=== PATIENT | female | born 1980 ===

== ENCOUNTER 2018-01-25 11:50 | Emergency (ER) | payer OTHER ==
[2018-01-25 11:55] VITALS: BMI 25.4
[2018-01-25 11:56] VITALS: BP 118/68; PULSE 74; RESP 16; TEMP 98.8; O2SAT 100
--- NOTE | 2018-01-25 13:20 | ED PDOC ---
HPI: Headache Time Seen by Provider: 01/25/18 12:10 Chief Complaint (Nursing): Dizziness/Lightheaded Chief Complaint (Provider): Dizziness History Per: Patient, Cabin Crew History/Exam Limitations: no limitations Current Symptoms Are (Timing): Still Present Additional Complaint(s): Pt reports frontal MENDOZA and dizziness X 1 week, worse in past 3 days. Vertigo worse with head movement. Had similar sxs years ago when dx with anemia, no transfusion. Has not taken medication. Denies visual changes, paresthesias, weakness, incontinence. Past Medical History Reviewed: Nursing Documentation, Vital Signs Vital Signs: Last Vital Signs Temp 98.8 F 01/25/18 11:54 Pulse 74 01/25/18 11:54 Resp 16 01/25/18 11:54 BP 118/68 01/25/18 11:54 Pulse Ox 100 01/25/18 11:54 - Medical History PMH: Anemia Other PMH: Thyroid cyst - Family History Family History: States: Unknown Family Hx - Living Arrangements Living Arrangements: With Family - Social History Current smoker - smoking cessation education provided: No Alcohol: None - Immunization History Hx Tetanus Toxoid Vaccination: No Hx Influenza Vaccination: No Hx Pneumococcal Vaccination: No - Home Medications Home Medications: Ambulatory Orders Medication Instructions Recorded Ferrous Sulfate [Feosol] 325 mg PO TID #30 tab 01/25/18 Meclizine [Meclizine*] 25 mg PO Q6 PRN #20 tab 01/25/18 - Allergies Allergies/Adverse Reactions: Allergies Allergy/AdvReac Type Severity Reaction Status Date / Time No Known Allergies Allergy Verified 01/25/18 12:53 Review of Systems Constitutional: Negative for: Fever, Chills, Weakness Eyes: Negative for: Vision Change ENT: Negative for: Ear Pain Cardiovascular: Negative for: Chest Pain Respiratory: Negative for: Cough, Shortness of Breath Gastrointestinal: Negative for: Nausea, Vomiting, Abdominal Pain, Diarrhea Genitourinary Female: Negative for: Vaginal Bleeding Musculoskeletal: Negative for: Neck Pain Skin: Negative for: Rash, Lesions Neurological: Positive for: Headache, Dizziness. Negative for: Weakness, Numbness, Incoordination, Change in Speech, Confusion, Seizures, Altered Mental Status Physical Exam - Reviewed Nursing Documentation Reviewed: Yes Vital Signs Reviewed: Yes - Physical Exam Appears: Positive for: Well, No Acute Distress Head Exam: Positive for: ATRAUMATIC, NORMAL INSPECTION Skin: Positive for: Normal Color, Warm, Dry Eye Exam: Positive for: Normal appearance, EOMI, PERRL, Nystagmus (Horizontal) Neck: Positive for: Normal, Painless ROM, Supple Cardiovascular/Chest: Positive for: Regular Rate, Rhythm Respiratory: Positive for: Normal Breath Sounds Back: Positive for: Normal Inspection Extremity: Positive for: Normal ROM Neurologic/Psych: Positive for: Alert, construction millwright II-XII, Oriented, Cerebellar Tests ( WNL). Negative for: Motor/Sensory Deficits, Aphasia, Facial Droop - Laboratory Results Result Diagrams: 01/25/18 13:35 01/25/18 13:35 - ECG O2 Sat by Pulse Oximetry: 100 Medical Decision Making Medical Decision Makin yo female with MENDOZA and vertigo. - [facility] : [id number] Patient Name / ID : INNA EPPS / [id number] Exam Date : 01/25/2018 13:45:06 ( Approved ) Study Comment : Sex / Age : F / [id number] Creator : Ahsan Meneses MD Dictator : hAsan Meneses MD Pick Out Hand : Inspector [employer] : Ahsan Meneses MD Approver2 : Report Date : 01/25/2018 14:37:43 My Comment : PROCEDURE: CT HEAD WITHOUT CONTRAST. HISTORY: Vertigo COMPARISON: None available. TECHNIQUE: Axial computed tomography images were obtained through the head/brain without intravenous contrast. Radiation dose: Total exam DLP = 936.96 mGy-cm. This CT exam was performed using one or more of the following dose reduction techniques: Automated exposure control, adjustment of the mA and/or kV according to patient size, and/or use of iterative reconstruction technique. FINDINGS: HEMORRHAGE: No intracranial hemorrhage. BRAIN: Normal hsu-white matter differentiation and density are appreciated throughout the cerebrum and cerebellum with the brainstem appearing unremarkable as well. There is no mass effect. There is no suspicious extra-axial fluid collection and the midline brain anatomy appears diffusely unremarkable. VENTRICLES: Unremarkable. No hydrocephalus. CALVARIUM: Unremarkable. PARANASAL SINUSES: Unremarkable as visualized. No significant inflammatory changes. MASTOID AIR CELLS: Unremarkable as visualized. No inflammatory changes. OTHER FINDINGS: None. IMPRESSION: Unremarkable unenhanced CT of the brain. Follow-up CT or MRI are available if clinically warranted. Disposition - Clinical Impression Clinical Impression: Vertigo, Anemia - Patient ED Disposition Is Patient to be Admitted: No - Disposition Referrals: [facility] [Outside] [facility] [Outside] Disposition: Routine/Home Disposition Time: 15:41 Condition: STABLE Prescriptions: Ferrous Sulfate [Feosol] 325 mg PO TID #30 tab Meclizine [Meclizine*] 25 mg PO Q6 PRN #20 tab PRN Reason: Dizziness Instructions: Vertigo (a Type of Dizziness), Anemia Caused by Low Iron Forms: [employer] (Malian) Print Language: NORWEGIAN
[2018-01-25 13:52] LABS: ALB/GLOB RATIO 1.1 (1.0-2.1); ALBUMIN 4.2 g/dL (3.5-5.0); ALT/SGPT 30 U/L (9-52); AST/SGOT 19 U/L (14-36); BLOOD UREA NITROGEN 10 mg/dl (7-17); CALCIUM 9.3 mg/dL (8.4-10.2); GFR AFRICAN-AMERICAN > 60; GFR NON-AFRICAN AMERICAN > 60
[2018-01-25 13:54] LABS: BASO # 0.1 K/uL (0.0-0.2); BASO % 0.8 % (0.0-2.0); EOS # 0.5 K/uL (0.0-0.7); EOS % 6.2 % (0.0-4.0); HEMOGLOBIN 8.1 g/dL (12.0-16.0); LYMPH # 2.3 K/uL (1.0-4.3); LYMPH % 31.4 % (20.0-40.0); MEAN CELL VOLUME 66.5 fl (81.0-99.0); MEAN CORPUSCULAR HGB CONC 30.1 g/dL (33.0-37.0); MEAN PLATELET VOLUME 7.4 fl (7.2-11.7); MONO # 0.4 K/uL (0.0-0.8); MONO % 5.3 % (0.0-10.0); NEUT # 4.1 K/uL (1.8-7.0); NEUT % 56.3 % (50.0-75.0); NRBC % 0.2 % (0.0-0.0); RBC 4.03 Mil/uL (3.80-5.20); RED CELL DISTRIBUTION WIDTH 21.3 % (11.5-14.5); WHITE BLOOD COUNT 7.3 K/uL (4.8-10.8)
--- NOTE | 2018-01-25 14:39 | CT ---
PROCEDURE: CT HEAD WITHOUT CONTRAST. HISTORY: Vertigo COMPARISON: None available. TECHNIQUE: Axial computed tomography images were obtained through the head/brain without intravenous contrast. Radiation dose: Total exam DLP = 936.96 mGy-cm. This CT exam was performed using one or more of the following dose reduction techniques: Automated exposure control, adjustment of the mA and/or kV according to patient size, and/or use of iterative reconstruction technique. FINDINGS: HEMORRHAGE: No intracranial hemorrhage. BRAIN: Normal hsu-white matter differentiation and density are appreciated throughout the cerebrum and cerebellum with the brainstem appearing unremarkable as well. There is no mass effect. There is no suspicious extra-axial fluid collection and the midline brain anatomy appears diffusely unremarkable. VENTRICLES: Unremarkable. No hydrocephalus. CALVARIUM: Unremarkable. PARANASAL SINUSES: Unremarkable as visualized. No significant inflammatory changes. MASTOID AIR CELLS: Unremarkable as visualized. No inflammatory changes. OTHER FINDINGS: None. IMPRESSION: Unremarkable unenhanced CT of the brain. Follow-up CT or MRI are available if clinically warranted.
== END 2018-01-25 15:55 | disposition home or self-care (01) ==
LOC: H.ER 11:50
DX: R42 Dizziness and giddiness (principal); D64.9 Anemia, unspecified